=== PATIENT | male | born 1980 | race Caucasian/White ===

== ENCOUNTER 2018-11-07 22:58 | Emergency (ER) | payer SELFPAY ==
[~2018-11-07] VITALS: Ht 177.8 cm; Wt 79.1 kg
[2018-11-07 23:03] VITALS: Ht 177.8 cm; Wt 79.1 kg
[2018-11-08 01:54] VITALS: BP 128/79
== END 2018-11-08 01:54 | disposition home or self-care (01) ==
LOC: ED 22:58
DX: R51 Headache (principal); R11.0 Nausea